=== PATIENT | male | born 1970 | race Caucasian/White ===

== ENCOUNTER 2017-07-30 17:01 | Emergency (ER) | payer OTHER ==
[2017-07-30 17:30] VITALS: BP 144/90
[2017-07-30] MEDS ORDERED: Azithromycin TAB* 250 MG PO ONE (18:07)
--- NOTE | 2017-07-30 18:12 | UC ---
Throat Pain/Nasal Asa HPI - HPI Summary HPI Summary: patient has increased head congestion, ear pain and sore throat, cough is sometimes uncontrollable. - History of Current Complaint Chief Complaint: UCGeneralIllness Stated Complaint: COUGH Time Seen by Provider: 07/30/17 18:04 Hx Obtained From: Patient Onset/Duration: Sudden Onset, Lasting Weeks - 2 Severity: Moderate Associated Signs & Symptoms: Positive: Dysphagia, Wheezing, Hoarseness, Sinus Discomfort - Allergies/Home Medications Allergies/Adverse Reactions: Allergies Allergy/AdvReac Type Severity Reaction Status Date / Time No Known Allergies Allergy Verified 07/30/17 17:29 Home Medications: Home Medications Ibuprofen TAB* [Advil TAB*] 400 mg PO Q6H PRN 07/30/17 [History Confirmed ] Bxxrzmnippaoi-Qermrobrnz-Cvcip [Nyquil Severe Cold/Flu 5-6.25-10-325 mg/15Ml] 1 liq PO DAILY PRN 07/30/17 [History Confirmed 07/30/17] PMH/Surg Hx/FS Hx/Imm Hx Previously Healthy: Yes - Surgical History Surgical History: None - Family History Known Family History: Positive: Hypertension - Social History Alcohol Use: Weekly Substance Use Type: None Smoking Status (MU): Never Smoked Tobacco Type: Smokeless Tobacco Amount Used/How Often: 1/2 can daily Length of Time of Smoking/Using Tobacco: 15 years Review of Systems Constitutional: Fever, Fatigue Skin: Negative Eyes: Negative ENT: Sore Throat, Ear Ache, Sinus Congestion Respiratory: Cough Cardiovascular: Negative Gastrointestinal: Negative Genitourinary: Negative Motor: Negative Neurovascular: Negative Musculoskeletal: Negative Neurological: Headache Psychological: Negative Is Patient Immunocompromised?: No All Other Systems Reviewed And Are Negative: Yes Physical Exam Triage Information Reviewed: Yes Appearance: Well-Nourished, Ill-Appearing, Pain Distress Vital Signs: Initial Vital Signs Temp 98.7 F 07/30/17 17:23 Pulse 86 07/30/17 17:23 Resp 16 07/30/17 17:23 BP 144/90 07/30/17 17:23 Pulse Ox 100 07/30/17 17:23 Vital Signs Reviewed: Yes Eye Exam: Normal ENT: Positive: Pharyngeal erythema - with posterior exudate, Nasal congestion, TM bulging - bilaterally, TM dull, TM red - left, Sinus tenderness Dental Exam: Normal Neck exam: Normal Neck: Positive: Supple, Nontender, No Lymphadenopathy Respiratory Exam: Normal Respiratory: Positive: Chest non-tender, Wheezing, Inspiration Cardiovascular Exam: Normal Cardiovascular: Positive: RRR, No Murmur, Pulses Normal Abdominal Exam: Normal Abdomen Description: Positive: Nontender, No Organomegaly, Soft Bowel Sounds: Positive: Present Musculoskeletal Exam: Normal Neurological Exam: Normal Psychological Exam: Normal Skin Exam: Normal Throat Pain/Nasal Course/Dx - Course Course Of Treatment: hx obtained, exam performed, meds reviewed, treated for sinusitis and bronchospasm - Differential Dx/Diagnosis Differential Diagnosis/HQI/PQRI: Influenza, Otitis Media, Pharyngitis, Sinusitis , URI Provider Diagnoses: sinusitis. bronchospasm Discharge - Discharge Plan Condition: Stable Disposition: HOME Prescriptions: Azithromycin TAB* [Zithromax TAB (Z-RAVIN) 250 mg #6 tabs] 250 mg PO DAILY #4 tab predniSONE TAB* [Deltasone TAB*] 40 mg PO DAILY #14 tab Patient Education Materials: Sinusitis (ED) Referrals: No Primary Care Phys,NOPCP [Primary Care Provider] - Additional Instructions: 1. Start the prednisone tomorrow morning. 2. INcrease fluid intake and get plenty of rest 3. COntinue with tylenol or Ibuprofen for pain and fever 4. Warm compresses ear to relive pressure.
== END 2017-07-30 18:22 | disposition home or self-care (01) ==
LOC: UCCORT 17:01
DX: J32.9 Chronic sinusitis, unspecified (principal); J98.01 Acute bronchospasm; F17.290 Nicotine dependence, other tobacco product, uncomplicated
CPT/HCPCS: 99212; A9270-GY; G0463

== ENCOUNTER 2019-07-29 11:52 | Emergency (ER) | payer OTHER ==
[2019-07-29 12:47] VITALS: BP 113/86
--- NOTE | 2019-07-29 13:12 | UC ---
FLU HPI - HPI Summary HPI Summary: Flu-like symptoms for 2 days starting Tuesday. Pt's was diagnosed with the flu this past week. - History of Current Complaint Chief Complaint: UCGeneralIllness Stated Complaint: FEVER, COUGH, HEADACHE Time Seen by Provider: 07/29/19 13:06 Hx Obtained From: Patient Onset/Duration: Sudden Onset Severity Currently: Mild Severity Initially: Mild Pain Intensity: 6 Associated Signs & Symptoms: Positive: Fever, Myalgia, Cough, Nasal Congestion, Headache Related Hx: Possible Flu/Infectious Exposure - Allergy/Home Medications Allergies/Adverse Reactions: Allergies Allergy/AdvReac Type Severity Reaction Status Date / Time No Known Allergies Allergy Verified 07/29/19 12:47 PMH/Surg Hx/FS Hx/Imm Hx Previously Healthy: Yes - Surgical History Surgical History: None - Family History Known Family History: Positive: Hypertension - Social History Occupation: Employed Full-time Lives: With Family Alcohol Use: Weekly Substance Use Type: None Smoking Status (MU): Former Smoker Type: Smokeless Tobacco Amount Used/How Often: 1/2 can daily Length of Time of Smoking/Using Tobacco: 15 years Review of Systems All Other Systems Reviewed And Are Negative: Yes Constitutional: Positive: Fever, Chills, Fatigue ENT: Positive: Nasal Discharge, Sinus Congestion Respiratory: Positive: Cough - Dry non-productive cough Musculoskeletal: Positive: Myalgia Neurological: Positive: Headache - Mild headache Is Patient Immunocompromised?: No Physical Exam Triage Information Reviewed: Yes Appearance: Well-Appearing, No Pain Distress, Well-Nourished Vital Signs: Initial Vital Signs Temp 99.2 F 07/29/19 12:42 Pulse 102 07/29/19 12:42 Resp 18 07/29/19 12:42 BP 113/86 07/29/19 12:42 Pulse Ox 98 07/29/19 12:42 Vital Signs Reviewed: Yes Eyes: Positive: Conjunctiva Clear ENT: Positive: Pharynx normal, Nasal congestion, TMs normal, Uvula midline Neck: Positive: Supple, Nontender, No Lymphadenopathy Respiratory: Positive: Lungs clear, Normal breath sounds, No respiratory distress, No accessory muscle use Cardiovascular: Positive: No Murmur, Pulses Normal, Brisk Capillary Refill, Tachycardia Musculoskeletal Exam: Normal Neurological Exam: Normal Psychological Exam: Normal Skin Exam: Normal Flu Course/Dx - Course Course Of Treatment: Rapid flu test:Negative Because pt's has diagnosed flu and they are traveling to [place] next week , he would like to take the Tamiflu prophylaxis - Differential Dx/Diagnosis Provider Diagnosis: URI (upper respiratory infection), Exposure to the flu Discharge ED - Sign-Out/Discharge Documenting (check all that apply): Patient Departure All imaging exams completed and their final reports reviewed: No Studies - Discharge Plan Condition: Fair Disposition: HOME Prescriptions: Oseltamivir CAP* [Tamiflu CAP*] 75 mg PO DAILY 10 Days #10 cap Patient Education Materials: Upper Respiratory Infection (ED) Referrals: No Primary Care Phys,NOPCP [Primary Care Provider] - [facility] [Outside] Additional Instructions: Over the counter cold medications as directed, increase fluids. Take the Tamiflu one capsule daily to help prevent the flu since it is in the household. - Billing Disposition and Condition Condition: FAIR Disposition: Home - Attestation Statements Provider Attestation: I was available for consult. This patient was seen by the [facility]. The patient was not presented to , seen by or examined by mo -Dunia Liriano MD
[2019-07-29 13:15] LABS: Influenza A Molecular NEGATIVE (Negative); Influenza B Molecular NEGATIVE (Negative)
== END 2019-07-29 13:28 | disposition home or self-care (01) ==
LOC: UCCORT 11:52
DX: Z20.828 Contact with and (suspected) exposure to other viral communicable diseases (principal); J06.9 Acute upper respiratory infection, unspecified; Z87.891 Personal history of nicotine dependence
CPT/HCPCS: 99212; G0463